=== PATIENT | male | born 1940 | race Caucasian/White ===

== ENCOUNTER → 2017-09-28 | Outpatient (CLI) | payer MEDICARE ==
[2017-09-28] MEDS: REGADENOSON 0.4 MG/5 ML DISP.SYRIN. IV (09:54)
== END | disposition home or self-care (01) ==
LOC: NM 07:43
DX: I65.23 Occlusion and stenosis of bilateral carotid arteries (principal); I10 Essential (primary) hypertension; E11.9 Type 2 diabetes mellitus without complications; R07.9 Chest pain, unspecified
CPT/HCPCS: 78452; 93017; 93880; 96374; 96375; 96376; A9500; J2785

== ENCOUNTER 2018-08-09 07:53 | Outpatient (CLI) | payer MEDICARE ==
[2018-08-09] VITALS (8 sets, daily range): BP systolic 122–135; BP diastolic 55–94
[~2018-08-09] VITALS: Ht 167.6 cm; Wt 97.5 kg
[~2018-08-09 07:53] MED LIST: BYSTOLIC20 MG PO; FINA5TAB4 PO; INSU100C4 SQ; OLME40TA12 PO; SIMV20TA3 PO; TAMS0.4C2 PO
--- NOTE | 2018-08-09 08:46 | PDOC ---
MODERATE SEDATION ASSESSMENT RISKS/ALTERNATIVES Risks/Alternatives Risks and alternatives of this type of sedation and procedure discussed with: RISK/ALTERNATIVES: Patient H & P ON CHART H & P H & P on chart and reviewed for co-morbid conditions and appropriate labs. H&P ON CHART: Yes STATUS PREG STATUS ASSESSED: N/A MEDS/ALLERGIES REVIEWED Meds/Allergies Reviewed Medications and Allergies including time and route of recently administered narcotics and sedatives. MEDS/ALLERGIES REVIEWED: Yes ASA RATING ASA RATING: II AIRWAY ASSESSMENT Airway Assessment Airway patency, oral function limitations, presence of caps, crowns, dentures, partials, and ability to extend neck assessed. AIRWAY ASSESSMENT: Yes MALLAMPATI SCORE MALLAMPATI SCORE: II PRE-SEDATION ASSESSMENT PRE-SEDATION ASSESSMENT: Yes JOSE PEREZ MD Aug 09, 2018 08:46
[2018-08-09 08:57] LABS: HEMATOCRIT 30.7 % (39.0-53.0); HEMOGLOBIN 9.9 g/dL (13.0-17.5); RED BLOOD COUNT 3.54 x10^6/uL (4.30-5.70); RED CELL DISTRIBUTION WIDTH 14.7 % (11.5-14.5); WHITE BLOOD COUNT 4.9 x10^3/uL (4.0-11.0)
[2018-08-09 09:05] LABS: PROTHROMBIN TIME PATIENT 12.6 SEC (11.7-14.0)
[2018-08-09 09:11] LABS: CALCIUM 8.1 mg/dL (8.5-10.1); CREATININE 1.4 mg/dL (0.7-1.3); GFR 48.8; POTASSIUM 5.2 mmol/L (3.5-5.1)
[2018-08-09] MEDS ORDERED: ALLO100T PO (09:23)
[2018-08-09] MEDS ORDERED: INSU100I13 SQ (09:23)
[2018-08-09] MEDS ORDERED: SIMV40TA3 PO (09:23)
[2018-08-09] MEDS ORDERED: DEXL60CA2 PO (09:23)
[2018-08-09] MEDS ORDERED: VALS160T3 PO (09:23)
[2018-08-09] MEDS ORDERED: CEFD300C PO (09:23)
[2018-08-09] MEDS ORDERED: CARV25TA2 PO (09:23)
[2018-08-09] MEDS ORDERED: IODIXANOL 320 MG/ML 100 ML VIAL. ONE (10:28)
[2018-08-09] MEDS ORDERED: LIDOCAINE 1% PF 2 ML VIAL. ONE (10:28)
[2018-08-09] MEDS ORDERED: fentaNYL PF VIAL 100 MCG/2 ML VIAL ONE (10:34)
[2018-08-09] MEDS ORDERED: HEPARIN for IV BOLUS 10,000 UNIT/10 ML VIAL. ONE (10:34)
[2018-08-09] MEDS ORDERED: VERAPAMIL 5 MG/2 ML VIAL. ONE (10:34)
[2018-08-09] MEDS ORDERED: NITROGLYCERIN 200 MCG/2 ML SYRINGE FOR CATH/VASC LAB. ONE (10:34)
[2018-08-09] MEDS ORDERED: MIDAZOLAM HCL/PF 5 MG/5 ML VIAL. ONE (10:34)
[2018-08-09] MEDS ORDERED: HEPARIN for IV BOLUS 10,000 UNIT/10 ML VIAL. IART ONE (11:00)
[2018-08-09] MEDS ORDERED: LIDOCAINE 1% PF 2 ML VIAL. INJ ONE (11:00)
[2018-08-09] MEDS ORDERED: IODIXANOL 320 MG/ML 100 ML VIAL. IART ONE (11:00)
[2018-08-09] MEDS ORDERED: VERAPAMIL 5 MG/2 ML VIAL. IART ONE (11:00)
[2018-08-09] MEDS ORDERED: NITROGLYCERIN 200 MCG/2 ML SYRINGE FOR CATH/VASC LAB. IART ONE (11:00)
--- NOTE | 2018-08-09 13:08 | CARD ---
MR#: [id number] Date of Study: 08/09/2018 Ordering Physician: JOSE MAYNARD, Referring Physician: JOSE MAYNARD Tech: RT Trang (R) APPROVED REPORT Technologist: Ad Conner RT (R) Nurse: Camila Page R.N. Procedure(s) performed: Fluoro Time: 3.4 min Left heart catheterization, selective coronary angiography and left ventriculography via right transr adial approach Contrast: 108cc Dose:0.07(Gy.m2) INDICATION The indication(s) include : unstable angina . CS Clinical Frailty Scale [facility] Clinical Frailty Scale: Managing Well Heart Failure Heart Failure: No PROCEDURE NARRATIVE After explaining the risks, benefits and alternative options, informed consent was obtained from isi ent. Patient was brought to the cardiac [employer] Program Chair and right wrist was prepped and draped in the usual fashion after confirming a positive modified Arnel's test. Arterial access was obtained in the righ t radial artery and a 6 Georgian sheath was inserted. 6 Georgian Polo catheter was used to perform stephanie ective angiography of the left and right coronary arteries. The same catheter was used to perform le ft ventriculography. Patient tolerated the procedure well. Hemostasis was achieved using TR band. There were no immediate complications. The following findings were noted. FINDINGS 1. Hemodynamics: Left ventricular end-diastolic pressure of 18 mmHg. No pullback gradient across th e aortic valve. 2. Left ventriculography: Normal left ventricle systolic function with ejection fraction estimated at 60%. No significant mitral regurgitation seen. 3. Coronary angiography: a. The left main coronary artery arose from the left sinus of Valsalva, gave rise to the left anteri or descending and left circumflex arteries and did not show any significant stenosis. b. The left anterior descending artery did not show any significant stenosis. c. The left circumflex artery did not show any significant stenosis. d. The right coronary artery was a large and dominant vessel arising from the right sinus of Valsalv a that did not show any significant stenosis. Conclusion 1. No significant coronary artery disease 2. Normal left ventricle systolic function with ejection fraction estimated at 60% Signed by : Jose Maynard, Electronically Approved : 08/09/2018 13:07:43
--- NOTE | 2018-08-09 13:09 | NUR ---
Discharge Note: [facility] Discharge instructions and discharge home medications reviewed with Patient and a copy given. All questions have been answered and understanding verbalized. The following instructions and handouts were given: Do not shower for 24 hours. May take off arm board in 24 hours. no heavy lifting for 5 days. Discontinued lines and drains: Peripheral IV intact. Patient discharged to Home or Self Care with Self via Wheelchair
[2018-08-09] MEDS ORDERED: 0.9 % SODIUM CHLORIDE 10 ML DISP.SYRIN. IV PRN (13:15)
== END 2018-08-09 13:31 | disposition home or self-care (01) ==
LOC: CCL 07:53
PROVIDERS: ATTEND Internal Medicine Cardiovascular Disease
DX: I20.0 Unstable angina (principal); I10 Essential (primary) hypertension; E78.5 Hyperlipidemia, unspecified; E11.9 Type 2 diabetes mellitus without complications; Z79.84 Long term (current) use of oral hypoglycemic drugs
CPT/HCPCS: 36415; 80048; 85027; 85610; 93458; C1769; C1892; J1644; J3490; Q9967

== ENCOUNTER → 2018-08-16 | Outpatient (CLI) | payer MEDICARE ==
[2018-08-09 12:52] VITALS: BP 132/55
[~2018-08-16] MED LIST changes: +ALLO100T PO; +CARV25TA2 PO; +CEFD300C PO; +CONTRAST GIVEN. MC PRN; +DEXL60CA2 PO; +INSU100I13 SQ; +IOHEXOL 350 MG/ML 100 ML VIAL. IV ONE; +SIMV40TA3 PO; +VALS160T3 PO
--- NOTE | 2018-08-16 14:49 | RAD ---
CTA of the chest with contrast, 08/16/2018: HISTORY: Chest pain, dyspnea Multidetector CT imaging was performed following an IV bolus injection of iodinated contrast material. Multiplanar reconstructions were produced including coronal and sagittal MIP images. The central pulmonary arteries are well opacified and no filling defects are seen to suggest pulmonary emboli. There is mild calcific plaquing of the thoracic aorta without evidence of aneurysm or dissection. Minimal coronary artery calcifications are noted. The heart is at the upper limits of normal in size. No mediastinal or hilar adenopathy is seen. Evaluation of the lung parenchyma is compromised by patient respiratory motion artifact there are mild, predominantly dependent groundglass opacities probably representing atelectasis or mild edema. No pleural fluid is evident. IMPRESSION: 1. No CT evidence of central pulmonary emboli. 2. Minimal coronary artery calcifications. 3. Mild predominantly groundglass opacities in both lungs suggesting atelectasis and/or mild edema. PQRS Compliance Statement: One or more of the following individualized dose reduction techniques were utilized for this examination: 1. Automated exposure control 2. Adjustment of the mA and/or kV according to patient size 3. Use of iterative reconstruction technique Electronically signed by: Sher Batista MD (08/16/2018 2:46 PM) [facility]
== END | disposition home or self-care (01) ==
LOC: CT 13:58
PROVIDERS: ATTEND Internal Medicine Pulmonary Disease
DX: I25.10 Atherosclerotic heart disease of native coronary artery without angina pectoris (principal); I70.0 Atherosclerosis of aorta
CPT/HCPCS: 71275; Q9967

== ENCOUNTER → 2019-11-25 | Outpatient (CLI) | payer MEDICARE ==
[2018-08-09 12:52] VITALS: BP 132/55
[~2019-11-25] MED LIST changes: -CONTRAST GIVEN. MC PRN; -IOHEXOL 350 MG/ML 100 ML VIAL. IV ONE; +REGADENOSON 0.4 MG/5 ML DISP.SYRIN. IV ONE; +SIMV20TA18 PO; -SIMV20TA3 PO; +SIMV40TA18 PO; -SIMV40TA3 PO
--- NOTE | 2019-11-25 12:33 | RAD ---
MR#: [id number] Date of Study: 11/25/2019 Ordering Physician: JOSE PEREZ Referring Physician: HU GOMEZ Tech: RT Luisa Steel) (N) APPROVED REPORT Test Type: Pharmacological Stress Nurse/Tech: Lore Gross R.N. Test Indications: CP Cardiac History: Hypertension Medications: See Electronic Medical Record Medical History: See Electronic Medical Record Resting ECG: NSR Resting Heart Rate: 60 bpm Resting Blood Pressure: 122/51mmHg Pretest Chest Pain: No chest pain Nurse/Tech Notes S1S2, lungs sound clear Consent: The procedure was explained to the patient in lay terms. Informed consent was witnessed. Gray eout was entered into [employer]. History and Stress Test performed by RT Luisa Pimentel) (N) Pharm. Details Pharmacologic stress testing was performed using 0.4mg per 5ml of regadenoson given intravenously ove r 7-10 seconds. Stress Symptoms No chest pain or symptoms. POST EXERCISE Reason for Termination: Infusion complete Target HR: 118 Max HR: 80 bpm Max Blood Pressure: 146/42mmHg Blood Pressure response to exercise: Normal blood pressure response during stress. Chest Pain: No. Arrhythmia: No. ST Change: No. INTERPRETATION Stress EKG Conclusion: Baseline EKG showed sinus rhythm. No ischemic changes at peak stress. No arr hythmias. Imaging Protocol IMAGE PROTOCOL: Rest Tc-99m/stress Tc-99m 1 day Rest: Stress: Viability: Radiopharm.Tc99m TqkiktnghLh06g Sestamibi Dose10.5mCi 30.3mCi Duration 13min. 13min. Img Date 11/25/2019 11/25/2019 Inj-Img Osjh67uxh. 60min. Rest Admin Site:IV - Left ForearmAdministrator:RT Luisa Steel)(N) Stress Admin Site: IV - Left ForearmAdministrator: RT Luisa Pimentel)(N) STRESS DATA End Diast. Vol.106.0mlAv. Heart Rate67.0bpm End Syst. Vol.12.0mlCO Index BSA0.0L/min Myocardial Lsur927.0gEject. Gdomgbnj93.0% Stress Rates Pk. Fill Rate2.35EDV/secLVtime Pk. Fill 150.22msec Pk. Empty Rate3.82ESV/secLVtime Pk. Urjer377.96msec 1/3 Pk. Fill1.33EDV/sec Stress Scores Regional WT0.00Summed WT0.00 Regional WM0.00Summed WM0.00 Study quality was good. Left Ventricular size was Normal at Rest and Stress. Lung uptake was . Left Ventricular ejection fraction is 89%. The rest and stress images show normal perfusion, normal contraction and thickening. LV Perf. Quant 17 Seg. SSS2.00 17 Seg. SRS2.00 17 Seg. SDS2.00 Stress Defect Extent (% LAD)3.80Rest Defect Extent (% LAD)6.90Rev. Defect Extent (% LAD)3.10 Stress Defect Extent (% LCX) 6.30Rest Defect Extent (% LCX)0.00Rev. Defect Extent (% LCX)6.30 Stress Defect Extent (% RCA)0.00Rest Defect Extent (% RCA)0.00Rev. Defect Extent (% RCA)0.00 Stress Defect Extent (% OLIVER)4.10Rest Defect Extent (% OLIVER)2.40Rev. Defect Extent (% OLIVER)3.90 Conclusion 1. Regadenoson cardioisotope stress test did not show any evidence of ischemia or infarct. 2. Normal left ventricular systolic function with ejection fraction calculated at 89%. 3. Low risk for cardiac events. Signed by : Jose Perez, Electronically Approved : 11/25/2019 12:33:37
== END | disposition home or self-care (01) ==
LOC: NM 08:47
PROVIDERS: ATTEND Internal Medicine Cardiovascular Disease
DX: I10 Essential (primary) hypertension (principal); R07.9 Chest pain, unspecified
CPT/HCPCS: 78452; 82962; 93017; A9500; J2785

== ENCOUNTER → 2020-07-21 | Outpatient (CLI) | payer MEDICARE ==
[2018-08-09 12:52] VITALS: BP 132/55
[~2020-07-21] MED LIST changes: -REGADENOSON 0.4 MG/5 ML DISP.SYRIN. IV ONE
[2020-07-21 14:28] LABS: CALCIUM 8.4 mg/dL (8.5-10.1); CREATININE 1.9 mg/dL (0.7-1.3); GFR 34.1
--- NOTE | 2020-07-21 16:45 | CARD ---
MR#: [id number] Date of Study: 07/21/2020 Ordering Physician: JOSE PEREZ, Referring Physician: JOSE PEREZ, Tech: Nyasia Dawn [facility] APPROVED REPORT EXAM: Two-dimensional and M-mode echocardiogram with Doppler and color Doppler. Other Information Quality : AverageHR: 71bpm INDICATION Cardiomegaly RISK FACTORS Hypertension Diabetes 2D DIMENSIONS Left Atrium(2D)3.6 (1.6-4.0cm)IVSd1.5 (0.7-1.1cm) Aortic Root(2D)3.1 (2.0-3.7cm)LVDd5.1 (3.9-5.9cm) LVOT Diameter2.1 (1.8-2.4cm)PWd1.3 (0.7-1.1cm) LVDs2.8 (2.5-4.0cm)FS (%) 45.7 % SV97.2 mlLVEF(%)66.8 (>50%) Aortic Valve AoV Peak Vinod.152.0cm/sAoV VTI33.5cm AO Peak GR.9.2mmHgLVOT Peak Vinod.154.0cm/s LVOT VTI 36.26cmAO Mean GR.5mmHg YUSRA (VMAX)2.06qh7VBC (VTI)3.84cm2 Mitral Valve MV E Rjvivgns30.1cm/sMV DECEL OQPC925do MV A Tcjivqzs002.8cm/sMV E Mean Gr.3mmHg MV EDO16mgM/A Ratio0.7 MVA (PHT)3.39cm2 TDI E/Lateral E'12.1E/Medial E'12.0 Pulmonary Valve PV Peak Pzakzbia49.9cm/sPV Peak Grad.3mmHg Tricuspid Valve TR P. Wvmptzcm541vj/sRAP ZABANQWL2csKl TR Peak Gr.08isGbHDWU14kqZq Pulmonary Vein S1 Btdawjrh51.1cm/sD2 Pfsfqcci33.3cm/s PVa mxqbxdqj443bfap LEFT VENTRICLE The left ventricle is normal size. There is mild concentric left ventricular hypertrophy. The left ve ntricular systolic function is normal and the ejection fraction is within normal range. The Ejection Fraction is 55-60%. There is normal LV segmental wall motion. Transmitral Doppler flow pattern is Gra de I-abnormal relaxation pattern. RIGHT VENTRICLE The right ventricle is normal size. There is normal right ventricular wall thickness. The right ventr icular systolic function is normal. ATRIA The left atrium size is normal. The right atrium size is normal. The interatrial septum is intact wit h no evidence for an atrial septal defect or patent foramen ovale as noted on 2-D or Doppler imaging. AORTIC VALVE The aortic valve is normal in structure and function. Doppler and Color Flow revealed trace aortic re gurgitation. There is no significant aortic valvular stenosis. Calculated aortic valve area is 3.66 c m2 with maximum pressure gradient of 10 mmHg and mean pressure gradient of 6 mmHg. MITRAL VALVE The mitral valve is normal in structure and function. There is no evidence of mitral valve prolapse. There is no mitral valve stenosis. Doppler and Color Flow revealed no mitral valve regurgitation note d. TRICUSPID VALVE The tricuspid valve is normal in structure and function. Doppler and Color Flow revealed trace tricus pid regurgitation. There is no tricuspid valve stenosis. GREAT VESSELS The aortic root is normal in size. The IVC is normal in size and collapses >50% with inspiration. PERICARDIAL EFFUSION There is no evidence of significant pericardial effusion. Critical Notification Critical Value: No <Conclusion> The left ventricle is normal size. The left ventricular systolic function is normal and the ejection fraction is within normal range. The Ejection Fraction is 55-60%. There is mild concentric left ventricular hypertrophy. Doppler and Color Flow revealed trace aortic regurgitation. There is no significant aortic valvular stenosis. Doppler and Color Flow revealed no mitral valve regurgitation noted. Doppler and Color Flow revealed trace tricuspid regurgitation. Signed by : Joshua Martinez MD Electronically Approved : 07/21/2020 16:45:29
== END ==
LOC: ECHO 13:44
PROVIDERS: ATTEND Internal Medicine Cardiovascular Disease
DX: I51.7 Cardiomegaly (principal)
CPT/HCPCS: 36415; 80048; 83880; 93306